=== PATIENT | male | born 1995 | race African-American/Black ===

== ENCOUNTER 2019-01-21 15:32 | Emergency (ER) | payer SELFPAY ==
[~2019-01-21] VITALS: Ht 182.9 cm; Wt 104.5 kg
[2019-01-21] MEDS ORDERED: TOPICAL CREAM TP (15:35)
[2019-01-21] MEDS ORDERED: LIDOCAINE/PF 1% 5 ML VIAL INJ ONE (16:30)
[2019-01-21] MEDS ORDERED: BACITRACIN 0.9 GM PACKET OINTMENT TP ONE (16:30)
[2019-01-21] MEDS ORDERED: PERTUSS(ACELL),DIPH,TET VAC/PF 0.5 ML VIAL IM ONE (16:30)
[2019-01-21 17:55] VITALS: BP 124/76
== END 2019-01-21 18:01 | disposition home or self-care (01) ==
LOC: EMS 15:33
DX: S61.411A Laceration without foreign body of right hand, initial encounter (principal); S60.221A Contusion of right hand, initial encounter; F17.210 Nicotine dependence, cigarettes, uncomplicated; Z88.8 Allergy status to other drugs, medicaments and biological substances; W45.8XXA Other foreign body or object entering through skin, initial encounter; Y93.89 Activity, other specified; Y92.89 Other specified places as the place of occurrence of the external cause; Y99.8 Other external cause status
CPT/HCPCS: 12002; 73130; 90471; 90715; 99283; J2001